=== PATIENT | female | born 1990 | race Caucasian/White ===

== ENCOUNTER 2018-09-15 21:33 | Emergency (ER) | payer OTHER ==
[~2018-09-15] VITALS: Ht 165.1 cm; Wt 63.0 kg
[~2018-09-15 21:33] MED LIST: AMOXICILLIN500 MG PO; FERROUS SULF325 M1 PO; IBUPROFEN600 MG PO; IRON PO; LORTAB 7.57.5 MG PO; NAPROSYN500 MG OR; NO HOME MEDS; PRE-NATAL PO; PRILOSEC20 MG/CAP PO
[2018-09-15 22:24] LABS: IMMATURE GRANULOCYTES 0.1 % (0.0-5.0); MEAN CORPUSCULAR HGB 29.5 pG CALC (26.0-32.0); MEAN CORPUSCULAR HGB CONC 33.1 g/L CALC (32.0-36.0); NEUT# 4.25 thou/uL (2.00-7.15); RED BLOOD COUNT 4.17 mill/uL (4.20-5.60)
[2018-09-15 22:24] LABS: URINE BILIRUBIN - DIPSTICK NEGATIVE (NEGATIVE); URINE BLOOD DIPSTICK NEGATIVE (NEGATIVE); URINE COLOR YELLOW; URINE GLUCOSE - DIPSTICK NEGATIVE (NEGATIVE); URINE KETONE NEGATIVE (NEGATIVE); URINE LEUK ESTERASE TRACE (NEGATIVE); URINE NITRITE - DIPSTICK NEGATIVE (Negative); URINE PH 7.5 (4.5-8.0); URINE PROTEIN - DIPSTICK NEGATIVE (NEG-TRACE); URINE SPECIFIC GRAVITY 1.015; URINE UROBILINOGEN - DIPSTICK 0.2 E.U./dL (0.2)
[2018-09-15 22:25] LABS: URINE CLARITY TURBID
[2018-09-15 22:26] LABS: HEMATOCRIT 37.2 % (37.0-47.0); HEMOGLOBIN 12.3 g/dl (12.0-16.0); MEAN CELL VOLUME 89.2 fL CALC (80.0-100.0)
[2018-09-15 22:33] LABS: URINE AMORPH SEDIMENT MANY hpf (NONE-FEW); URINE BACTERIA FEW hpf; URINE RBC 0-2 RBC/hpf (0-5); URINE SQUAMOUS EPITHELIAL CELL MANY EPI/hpf (0-FEW)
[2018-09-15 22:47] LABS: AMYLASE 70 u/l (30-110); ANION GAP 14 (6-22 (CALC)); BILIRUBIN, TOTAL 0.5 mg/dL (0.0-1.4); BUN 12 mg/dL (7-17); BUN/CREATININE RATIO 15 (12-20 (CALC)); CARBON DIOXIDE 26 mmol/l (22-30); CHLORIDE 105 mmol/l (95-108); CREATININE 0.8 mg/dL (0.5-1.0); GFR > 60 ML/MIN (>=60 (CALC)); GFR FOR AFR.AMER. > 60 ML/MIN (>=60 (CALC)); LIPASE 302 u/l (23-300); POTASSIUM 3.8 mmol/l (3.5-5.1); SODIUM 142 mmol/l (137-146)
[2018-09-15 22:51] LABS: ALBUMIN 4.4 g/dL (3.2-5.0); ALKALINE PHOSPHATASE 53 u/l (38-126); SGOT/AST 79 u/l (14-36); TOTAL PROTEIN 7.3 g/dL (6.3-8.2)
[2018-09-16] MEDS ORDERED: PHENERGAN25 MG RE (00:31)
[2018-09-16] MEDS ORDERED: HYDROCODONE/ACE1 TAB PO (00:31)
[2018-09-16 00:52] VITALS: BP 95/57
== END 2018-09-16 00:52 | disposition home or self-care (01) | DRG 446 ==
LOC: ED 21:33
PROVIDERS: Family Medicine
DX: K81.0 Acute cholecystitis (principal); R10.84 Generalized abdominal pain; R11.0 Nausea
CPT/HCPCS: Q9967